=== PATIENT | male | born 1985 | race Caucasian/White ===

== ENCOUNTER 2023-07-26 14:12 | Emergency (ER) | payer OTHER ==
[2023-07-26 14:45] LABS: BASOPHILS % (AUTO) 0.5 %; HGB - HEMOGLOBIN 15.3 g/dL (14.0-18.0); LYMPHOCYTES # (AUTO) 1.1 10^3/uL (1.5-3.5); LYMPHOCYTES % (AUTO) 17.1 %; MEAN CORPUSCULAR HEMOGLOBIN 27.8 pg (27.0-31.0); MEAN CORPUSCULAR HGB CONC 32.6 g/dL (32.0-36.0); MEAN CORPUSCULAR VOLUME 85.5 fL (80.0-94.0); MEAN PLATELET VOLUME 9.2 fL (7.4-11.4); MONOCYTES # (AUTO) 0.6 10^3/uL (0.0-1.0); MONOCYTES % (AUTO) 9.3 %; NEUTROPHILS # (AUTO) 4.8 10^3/uL (1.5-6.6); NEUTROPHILS % (AUTO) 72.8 %; PLT - PLATELET COUNT 327 10^3/uL (130-450); RED CELL DISTRIBUTION WIDTH 13.2 % (12.0-15.0); WHITE BLOOD COUNT 6.6 x10^3/uL (4.8-10.8)
[2023-07-26 14:58] LABS: BILIRUBIN,URINE SMALL (NEGATIVE); GLUCOSE, URINE (UA) NEGATIVE (NEGATIVE); KETONES,URINE (UA) NEGATIVE (NEGATIVE); LEUKOCYTE ESTERASE, URINE NEGATIVE (NEGATIVE); NITRITE,URINE NEGATIVE (NEGATIVE); OCCULT BLOOD,URINE TRACE-INTA (NEGATIVE); PROTEIN,URINE NEGATIVE (NEGATIVE); UROBILINOGEN,URINE 0.2 (NORMAL) E.U./dL (NORMAL)
[2023-07-26 15:05] LABS: ALBUMIN 4.6 g/dL (3.2-5.5); ALBUMIN/GLOBULIN RATIO 1.7 (1.0-2.2); BILIRUBIN,TOTAL 0.5 mg/dL (0.2-1.0); CALCIUM 9.3 mg/dL (8.5-10.3); CREATININE 0.9 mg/dL (0.6-1.3); POTASSIUM 3.7 mmol/L (3.5-4.5); TOTAL PROTEIN 7.3 g/dL (6.4-8.9)
[2023-07-26 15:14] LABS: CLARITY,URINE CLEAR (CLEAR)
--- NOTE | 2023-07-26 15:23 | ED Physician Documentation ---
PD HPI ABD PAIN - Stated complaint Stated Complaint: ABD PX,VOMITING - Chief complaint Chief Complaint: Abd Pain - History obtained from History obtained from: Patient - Additional information Additional information: 38-year-old gent with history of hypertension on lisinopril, otherwise healthy with no history of abdominal surgeries awoke around 3 AM with nausea vomiting and upper abdominal pain that subsequently radiated down. He continues to have pain but the nausea is gone. Had 1 normal bowel movement today, no diarrhea. No sick contacts. PD PAST MEDICAL HISTORY - Present Medications Home Medications: Ambulatory Orders Medication Instructions Recorded Confirmed HYDROcod/ACETAM 5/325 [[place] 5/325] 1 - 2 tab PO Q6H PRN #10 tablet 07/26/23 Lisinopril [Zestril] 10 mg PO DAILY 07/26/23 07/26/23 buPROPion HCL [Wellbutrin Xl] 300 mg PO DAILY 07/26/23 07/26/23 - Allergies Allergies/Adverse Reactions: Allergies Allergy/AdvReac Type Severity Reaction Status Date / Time No Known Drug Allergies Allergy Verified 07/26/23 14:27 PD ED PE NORMAL - Vitals Vital signs reviewed: Yes - General General: Alert and oriented X 3, No acute distress - Cardiac Cardiac: RRR, No murmur - Respiratory Respiratory: No respiratory distress, Clear bilaterally - Abdomen Abdomen: Normal bowel sounds, Soft, Other (Tender in the low abdomen, left greater than right without surgical signs. The tenderness is mild.) - Neuro Neuro: Alert and oriented X 3, Normal speech - Psych Psych: Normal mood, Normal affect Results - Vitals Vitals: Vital Signs - 24 hr 07/26/23 07/26/23 14:18 17:00 Temperature 36.6 C Heart Rate 84 81 Respiratory 17 18 Rate Blood Pressure 137/78 H 138/78 H O2 Saturation 98 98 Oxygen O2 Source Room air - Labs Labs: Laboratory Tests 07/26/23 07/26/23 07/26/23 14:20 14:39 14:39 WBC 6.6 RBC 5.50 Hgb 15.3 Hct 47.0 MCV 85.5 MCH 27.8 MCHC 32.6 RDW 13.2 Plt Count 327 MPV 9.2 Neut # (Auto) 4.8 Lymph # (Auto) 1.1 L [place] # (Auto) 0.6 Eos # (Auto) 0.0 Baso # (Auto) 0.0 Absolute Nucleated RBC 0.00 Nucleated RBC % 0.0 Sodium 136 Potassium 3.7 Chloride 102 Carbon Dioxide 28 Anion Gap 6.0 BUN 12 Creatinine 0.9 Estimated GFR (MDRD) 93 Glucose 101 Calcium 9.3 Total Bilirubin 0.5 AST 19 ALT 20 Alkaline Phosphatase 72 Total Protein 7.3 Albumin 4.6 Globulin 2.7 Albumin/Globulin Ratio 1.7 Lipase 11 Urine Color YELLOW Urine Clarity CLEAR Urine pH 6.0 Ur Specific [place] >=1.030 H Urine Protein NEGATIVE Urine Glucose (UA) NEGATIVE Urine Ketones NEGATIVE Urine Occult Blood TRACE-INTA Urine Nitrite NEGATIVE Urine Bilirubin SMALL H Urine Urobilinogen 0.2 (NORMAL) Ur Leukocyte Esterase NEGATIVE Ur Microscopic Review NOT INDICATED Urine Culture Comments NOT INDICATED - Rads (name of study) CT a/p - neg Relevant Findings:: Final report received, EMP independent interpretation of test PD Medical Decision Making - ED course ED course: 38-year-old gentleman resents with abdominal pain, differential diagnosis would include gastroenteritis, diverticulitis, appendicitis. Initial workup demonstrates unremarkable CBC, CMP, and urinalysis. CT abdomen and pelvis negative for acute pathology. On reexamination he was feeling better and did not require repeat pain medications. But he was given close return precautions. Departure - Departure Disposition: 01 Home, Self Care Clinical Impression: Abdominal pain Condition: Good Record reviewed to determine appropriate education?: Yes Instructions: ED Abdominal Pain Unkn Cause Male Prescriptions: HYDROcod/ACETAM 5/325 [[place] 5/325] 1 - 2 tab PO Q6H PRN #10 tablet PRN Reason: Pain Comments: I sent a prescription electronically for a limited number of painkillers to [facility] in [place]. I would like you to return on Sunday morning if not better. Sooner for new or worsening symptoms. All diagnostic test including labs and CAT scan were unremarkable. Forms: PCP List
[2023-07-26] MEDS: KETOROLAC 15 MG/ML VIAL IVP STA (15:57)
[2023-07-26] MEDS: HYDROmorphone 1 MG/ML CARPUJECT IVP STA (16:00)
[2023-07-26] MEDS ORDERED: iohexoL-300 100 ML VIAL ONE (16:24)
--- NOTE | 2023-07-26 17:36 | CT Report ---
PROCEDURE: Abdomen/Pelvis W INDICATIONS: IV only LLQ pain CONTRAST: Omni 300 100ml TECHNIQUE: After the administration of intravenous contrast, a CT scan of the abdomen and pelvis was performed. Images were recorded and evaluated at appropriate window settings. Reformats: coronal and sagittal. F or radiation dose reduction, the following was used: automated exposure control, adjustment of mA and /or kV according to patient size. COMPARISON: None. FINDINGS: Image quality: Diagnostic. Lower chest: Unremarkable. Liver: Hepatic steatosis. Gallbladder and biliary tree: No radiopaque stones or wall thickening. No biliary dilation. Spleen: No splenomegaly. Pancreas: No pancreatic ductal dilation. Adrenals: No adrenal nodule. Kidneys and ureters: No hydronephrosis. No renal cystic lesion which requires follow up. No solid mas s. Stomach, bowel and peritoneum: No bowel distension. No pathologic free fluid. Lymph nodes: No central or retroperitoneal adenopathy. Vessels: No infrarenal aortic aneurysm. PELVIS Reproductive organs: Unremarkable. Bladder: No abnormal wall thickening, accounting for underdistention. Pelvic lymph nodes: No pelvic adenopathy by size criteria. Bones: No aggressive osseous abnormality. Other: No significant ventral or inguinal hernia. IMPRESSION: No acute findings to explain the patient's left lower quadrant pain. No significant diverticular dise ase. Normal appendix. Reviewed by: Philippe Harrington MD on 07/26/2023 5:35 PM PDT Approved by: Philippe Harrington MD on 07/26/2023 5:35 PM PDT Station ID: [id number]
[2023-07-26 18:05] VITALS: BP 126/69; O2SAT 99
[2023-07-26] MEDS: iohexoL-300 100 ML VIAL IVP ONE (21:12)
== END 2023-07-26 17:57 | disposition home or self-care (01) ==
LOC: ED 14:12
DX: R11.2 Nausea with vomiting, unspecified (principal); R10.10 Upper abdominal pain, unspecified
CPT/HCPCS: 36415; 74177; 80053; 81003; 83690; 85025; 96374; 96375; 99284; 99285; J1170; Q9967; 81001; 87086